=== PATIENT | male | born 1960 | race Caucasian/White ===

== ENCOUNTER 2021-03-11 01:04 | Inpatient (IN) | payer MEDICARE ==
[~2021-03-11] VITALS: Ht 177.8 cm; Wt 75.4 kg
[~2021-03-11 01:04] MED LIST: AUGMENTIN 875-1 EACH PO; BACTRIM DS TAB1 EACH PO; BENTYL10 MG PO; CELECOXIB400 MG PO; FLOMAX0.4 MG PO; HUMIRA PEN40 MG/0.8 IM; IBUPROFEN800 M1 PO; K-DUR20 MEQ PO; LISINOPRIL 20MG20 MG PO; MEDROL 4MG DOSEP4 MG PO; METHOTREXATE2.5 MG PO; MOBIC7.5 MG PO; MUCINEX 600MG600 MG PO; OMEPRAZOLE 20MG20 MG PO; ONDANSETRON HCL4 MG PO; ONDANSETRON ODT4 MG SL; OXY-IR 5MG5 MG PO; PREDNISONE 20MG20 MG PO; TESSALON PERLE100 MG PO; TRELEGY ELLIPT1 EACH INH; VENTOLIN HFA IN18 GM INH; ZPAK PO
[2021-03-11 02:09] LABS: BASOPHIL 0.3 % (0-2); EOSINOPHIL 0.3 % (0-5); HCT 41.4 % (42.0-52.0); HGB 13.8 g/dl (13.2-18.0); MCH 28.8 pg (25.0-31.0); MCHC 33.3 g/dL (32.0-36.0); MCV 86.4 fL (78.0-100.0); MONOCYTE 7.2 % (0-12); MPV 10.2 fL (6.0-9.5); NEUTROPHIL 82.7 % (41-80); NRBC 0; PLT 311 K/uL (150-400); RBC 4.79 M/uL (4.70-6.00); RDW 14.6 % (11.5-14.0); WBC 20.8 K/uL (4.0-10.5)
[2021-03-11 02:12] LABS: BILIRUBIN 1+ mg/dL (NEGATIVE); BLOOD 3+ Ery/uL (NEGATIVE); GLUCOSE (U) TRACE mg/dL (NORMAL); LEUKOCYTES 2+ Leu/uL (NEGATIVE); NITRITE POSITIVE (NEGATIVE); PROTEIN 3+ mg/dL (NEGATIVE); pH 5.5 (5.0-9.0)
[2021-03-11 02:19] LABS: CLARITY SLIGHTLY HAZY (CLEAR); COLOR ORANGE (YELLOW)
[2021-03-11 02:22] LABS: BACTERIA 1+; URINARY RBC 20-50
[2021-03-11 02:23] LABS: CALCIUM OXALATE CRYSTALS TRACE
[2021-03-11 02:25] LABS: ALBUMIN 2.6 g/dL (3.4-5.0); BILIRUBIN - TOTAL 0.3 mg/dL (0.2-1.0); BUN/CREAT RATIO (CALC) 9.6 RATIO; CREATININE 1.04 mg/dL (0.67-1.17); GLOBULIN (CALCULATION) 3.8 g/dL; POTASSIUM 2.9 mmol/L (3.5-5.1); TOTAL PROTEIN 6.4 g/dL (6.4-8.2)
[2021-03-11 02:29] LABS: LACTIC ACID 2.3 mmol/L (0.4-1.9)
[2021-03-11 02:44] LABS: CORONAVIRUS 2019 SARS-COV-2 NEGATIVE (NEGATIVE); INFLUENZA A NAA NEGATIVE (NEGATIVE)
[2021-03-11 22:36] LABS: HCT 37.5 % (42.0-52.0); HGB 12.3 g/dl (13.2-18.0); MCH 29.4 pg (25.0-31.0); MCHC 32.8 g/dL (32.0-36.0); MCV 89.5 fL (78.0-100.0); MPV 10.9 fL (6.0-9.5); RBC 4.19 M/uL (4.70-6.00); RDW 15.1 % (11.5-14.0)
[2021-03-11 22:38] LABS: WBC 31.4 K/uL (4.0-10.5)
[2021-03-11 22:51] LABS: ALBUMIN 2.3 g/dL (3.4-5.0); BILIRUBIN - TOTAL 0.3 mg/dL (0.2-1.0); BUN/CREAT RATIO (CALC) 8.7 RATIO; CREATININE 1.27 mg/dL (0.67-1.17); GLOBULIN (CALCULATION) 3.6 g/dL; PHOSPHORUS 2.2 mg/dL (2.6-4.7); POTASSIUM 3.8 mmol/L (3.5-5.1); TOTAL PROTEIN 5.9 g/dL (6.4-8.2)
--- NOTE | 2021-03-11 23:56 | NUR ---
UNABLE TO OBTAIN HISTORY FROM PATIENT. ATTEMPTED TO CALL FAMILY. WILL UPDATE WHEN PATIENT IS MORE COHERENT.
[2021-03-12 07:43] LABS: BUN/CREAT RATIO (CALC) 11.5 RATIO; CREATININE 1.13 mg/dL (0.67-1.17); POTASSIUM 4.8 mmol/L (3.5-5.1)
[2021-03-12 08:12] LABS: BASOPHIL 0.2 % (0-2); EOSINOPHIL 0 % (0-5); HCT 36.8 % (42.0-52.0); HGB 11.9 g/dl (13.2-18.0); LYMPHOCYTE 6.4 % (15-48); MCHC 32.3 g/dL (32.0-36.0); MCV 89.5 fL (78.0-100.0); MONOCYTE 5.6 % (0-12); MPV 10.3 fL (6.0-9.5); PLT 225 K/uL (150-400); RBC 4.11 M/uL (4.70-6.00); WBC 20.7 K/uL (4.0-10.5)
[2021-03-12 08:32] LABS: INR 1.48 (0.9-1.2); PROTHROMBIN TIME 17.2 SECONDS (11.8-13.4); PTT 38.9 SECONDS (24.4-34.7)
[2021-03-12 09:30] LABS: BAND 6 % (0-10); LYMPHOCYTE(M) 3 % (15-48); MONOCYTE(M) 7 % (0-12); NEUTROPHILS(M) 84 % (41-80); NRBC 0; TOTAL CELL COUNT 100
[2021-03-12 09:31] LABS: POIKILOCYTOSIS SLIGHT
[2021-03-12 09:32] LABS: PLATELET ESTIMATE NORMAL; PLATELET MORPHOLOGY NORMAL
[2021-03-13 06:28] LABS: BASOPHIL 0.4 % (0-2); EOSINOPHIL 0.8 % (0-5); HCT 35.2 % (42.0-52.0); HGB 11.4 g/dl (13.2-18.0); LYMPHOCYTE 13.2 % (15-48); MCH 28.9 pg (25.0-31.0); MCHC 32.4 g/dL (32.0-36.0); MCV 89.1 fL (78.0-100.0); MPV 11.3 fL (6.0-9.5); NEUTROPHIL 77.5 % (41-80); NRBC 0; PLT 223 K/uL (150-400); RBC 3.95 M/uL (4.70-6.00); RDW 14.9 % (11.5-14.0); WBC 14.2 K/uL (4.0-10.5)
[2021-03-13 06:49] LABS: BUN/CREAT RATIO (CALC) 15.4 RATIO; CREATININE 1.04 mg/dL (0.67-1.17); POTASSIUM 3.7 mmol/L (3.5-5.1)
[2021-03-14 06:30] LABS: BASOPHIL 0.4 % (0-2); EOSINOPHIL 0.8 % (0-5); HCT 35.6 % (42.0-52.0); HGB 11.7 g/dl (13.2-18.0); LYMPHOCYTE 22.9 % (15-48); MCH 28.8 pg (25.0-31.0); MCHC 32.9 g/dL (32.0-36.0); MCV 87.7 fL (78.0-100.0); MONOCYTE 9.6 % (0-12); MPV 11.1 fL (6.0-9.5); NRBC 0; PLT 251 K/uL (150-400); RBC 4.06 M/uL (4.70-6.00); RDW 14.8 % (11.5-14.0); WBC 11.9 K/uL (4.0-10.5)
[2021-03-14 08:52] LABS: CREATININE 1.06 mg/dL (0.67-1.17); POTASSIUM 3.1 mmol/L (3.5-5.1)
[2021-03-14] MEDS ORDERED: ZYVOX600 MG PO (09:36)
== END 2021-03-14 16:20 | disposition home or self-care (01) | DRG 698 ==
LOC: FER 01:04 → FMS 22:13
PROVIDERS: Allergy & Immunology Allergy; Emergency Medicine; Nurse Practitioner; ADMIT Internal Medicine
DX: T83.592A Infection and inflammatory reaction due to indwelling ureteral stent, initial encounter (principal); A41.81 Sepsis due to Enterococcus; G93.41 Metabolic encephalopathy; R65.20 Severe sepsis without septic shock; N30.01 Acute cystitis with hematuria; C79.31 Secondary malignant neoplasm of brain; C34.90 Malignant neoplasm of unspecified part of unspecified bronchus or lung; N12 Tubulo-interstitial nephritis, not specified as acute or chronic; Z20.822 Contact with and (suspected) exposure to COVID-19; M06.9 Rheumatoid arthritis, unspecified; I10 Essential (primary) hypertension; F17.200 Nicotine dependence, unspecified, uncomplicated; F10.10 Alcohol abuse, uncomplicated; Z79.899 Other long term (current) drug therapy
CPT/HCPCS: 36415; 70450; 70553; 71045; 71250; 80048; 80053; 80202; 81001; 83605; 83690; 83735; 84100; 84145; 85025; 85610; 85730; 87040; 87076; 87088; 87186; 93005; 94010; 94640; 94760; 94762; A9579; C9113; J1170; J1630; J1650; J1885; J2020; J2060; J2185; J2405; J3370; J3411; J3475; J3480; J3486; J7030; J7050; U0002

== ENCOUNTER 2021-03-24 19:53 | Emergency (ER) | payer MEDICARE ==
[~2021-03-24 19:53] MED LIST changes: +ZYVOX600 MG PO
[2021-03-24 21:40] LABS: BASOPHIL 0.6 % (0-2); EOSINOPHIL 2.3 % (0-5); HCT 41.2 % (42.0-52.0); HGB 13.4 g/dl (13.2-18.0); LYMPHOCYTE 31.5 % (15-48); MCH 28.2 pg (25.0-31.0); MCHC 32.5 g/dL (32.0-36.0); MCV 86.7 fL (78.0-100.0); MONOCYTE 5.6 % (0-12); MPV 10.1 fL (6.0-9.5); NEUTROPHIL 59.3 % (41-80); NRBC 0; PLT 234 K/uL (150-400); RBC 4.75 M/uL (4.70-6.00); WBC 11.1 K/uL (4.0-10.5)
[2021-03-24 21:53] LABS: ALBUMIN 3.1 g/dL (3.4-5.0); BILIRUBIN - TOTAL 0.3 mg/dL (0.2-1.0); BUN/CREAT RATIO (CALC) 12.7 RATIO; CREATININE 1.02 mg/dL (0.67-1.17); POTASSIUM 3.2 mmol/L (3.5-5.1); TOTAL PROTEIN 7.1 g/dL (6.4-8.2)
[2021-03-24 22:06] LABS: LACTIC ACID 2.3 mmol/L (0.4-1.9)
[2021-03-24 22:31] LABS: CORONAVIRUS 2019 SARS-COV-2 NEGATIVE (NEGATIVE); INFLUENZA A NAA NEGATIVE (NEGATIVE)
[2021-03-24] MEDS ORDERED: MUCINEX 600MG600 MG PO (23:52)
[2021-03-24] MEDS ORDERED: ATIVAN0.5 MG PO (23:52)
== END 2021-03-25 00:04 | disposition home or self-care (01) ==
LOC: FER 19:53
PROVIDERS: Emergency Medicine Emergency Medical Services; Physician Assistant
DX: J44.9 Chronic obstructive pulmonary disease, unspecified (principal); F41.9 Anxiety disorder, unspecified; R91.1 Solitary pulmonary nodule; I10 Essential (primary) hypertension; F17.200 Nicotine dependence, unspecified, uncomplicated; Z20.822 Contact with and (suspected) exposure to COVID-19; Z88.8 Allergy status to other drugs, medicaments and biological substances
CPT/HCPCS: 36415; 71275; 80053; 83605; 83880; 84145; 84484; 85025; 87040; 93005; J1100; Q9967; U0002

== ENCOUNTER 2021-04-18 16:43 | Emergency (ER) | payer MEDICARE ==
[~2021-04-18 16:43] MED LIST changes: +ATIVAN0.5 MG PO
[2021-04-18 17:49] LABS: BASOPHIL 0.6 % (0-2); EOSINOPHIL 1.8 % (0-5); HCT 44.6 % (42.0-52.0); HGB 14.4 g/dl (13.2-18.0); LYMPHOCYTE 7.8 % (15-48); MCH 28.5 pg (25.0-31.0); MCHC 32.3 g/dL (32.0-36.0); MCV 88.1 fL (78.0-100.0); MONOCYTE 27.5 % (0-12); MPV 10.9 fL (6.0-9.5); NRBC 0; PLT 298 K/uL (150-400); RBC 5.06 M/uL (4.70-6.00); RDW 17.8 % (11.5-14.0); WBC 10.8 K/uL (4.0-10.5)
[2021-04-18 17:51] LABS: BILIRUBIN NEGATIVE (NEGATIVE); BLOOD NEGATIVE Ery/uL (NEGATIVE); CLARITY CLEAR (CLEAR); COLOR YELLOW (YELLOW); GLUCOSE (U) NORMAL (NORMAL); LEUKOCYTES NEGATIVE Leu/uL (NEGATIVE); NITRITE NEGATIVE (NEGATIVE); PROTEIN NEGATIVE (NEGATIVE); SPECIFIC GRAVITY 1.015 (1.001-1.030); UROBILINOGEN 0.2 mg/dL (0.2-1.0); pH 6.5 (5.0-9.0)
[2021-04-18 17:53] LABS: INR 1.11 (0.9-1.2); PROTHROMBIN TIME 13.7 SECONDS (11.8-13.4); PTT 29.3 SECONDS (24.4-34.7)
[2021-04-18 17:55] LABS: NEUTROPHIL 60.8 % (41-80)
[2021-04-18 18:08] LABS: ALBUMIN 3.5 g/dL (3.4-5.0); BILIRUBIN - TOTAL 0.2 mg/dL (0.2-1.0); BUN/CREAT RATIO (CALC) 7.5 RATIO; CREATININE 1.06 mg/dL (0.67-1.17); GLOBULIN (CALCULATION) 3.9 g/dL; POTASSIUM 3.8 mmol/L (3.5-5.1); TOTAL PROTEIN 7.4 g/dL (6.4-8.2)
[2021-04-18 18:10] LABS: LACTIC ACID 1.6 mmol/L (0.4-1.9)
[2021-04-18 18:26] LABS: INFLUENZA A NAA NEGATIVE (NEGATIVE)
[2021-04-18 18:38] LABS: BAND 12 % (0-10); BASOPHIL(M) 0 % (0-2); EOSINOPHIL(M) 4 % (0-5); LYMPHOCYTE(M) 9 % (15-48); MONOCYTE(M) 18 % (0-12); NEUTROPHILS(M) 57 % (41-80)
[2021-04-18 18:39] LABS: PLATELETS ON SMEAR ADEQUATE
[2021-04-18 18:43] LABS: CORONAVIRUS 2019 SARS-COV-2 POSITIVE (NEGATIVE)
== END 2021-04-18 19:18 | disposition home or self-care (01) ==
LOC: FER 16:43
PROVIDERS: Emergency Medicine
DX: U07.1 COVID-19 (principal); J44.9 Chronic obstructive pulmonary disease, unspecified; I10 Essential (primary) hypertension; Z88.8 Allergy status to other drugs, medicaments and biological substances
CPT/HCPCS: 36415; 71045; 80053; 81003; 83605; 84145; 85025; 85610; 85730; 87040; 87088; 93005; J2405; J2543; J7030; U0002

== ENCOUNTER 2021-05-10 22:54 | Emergency (ER) | payer MEDICARE ==
[2021-05-11 00:30] LABS: BASOPHIL 0.6 % (0-2); EOSINOPHIL 3.3 % (0-5); HCT 41.4 % (42.0-52.0); HGB 13.5 g/dl (13.2-18.0); LYMPHOCYTE 41.4 % (15-48); MCHC 32.6 g/dL (32.0-36.0); MPV 10.7 fL (6.0-9.5); NRBC 0; PLT 247 K/uL (150-400); RBC 4.65 M/uL (4.70-6.00); RDW 16.6 % (11.5-14.0); WBC 10.6 K/uL (4.0-10.5)
[2021-05-11 00:31] LABS: NEUTROPHIL 45.5 % (41-80)
[2021-05-11 00:41] LABS: BILIRUBIN NEGATIVE (NEGATIVE); BLOOD NEGATIVE Ery/uL (NEGATIVE); CLARITY CLEAR (CLEAR); COLOR YELLOW (YELLOW); GLUCOSE (U) NORMAL (NORMAL); LEUKOCYTES NEGATIVE Leu/uL (NEGATIVE); NITRITE NEGATIVE (NEGATIVE); PROTEIN NEGATIVE (NEGATIVE); SPECIFIC GRAVITY 1.025 (1.001-1.030); UROBILINOGEN 0.2 mg/dL (0.2-1.0); pH 6.5 (5.0-9.0)
[2021-05-11 00:51] LABS: ALBUMIN 3.2 g/dL (3.4-5.0); BILIRUBIN - TOTAL 0.3 mg/dL (0.2-1.0); BUN/CREAT RATIO (CALC) 11.9 RATIO; CREATININE 1.01 mg/dL (0.67-1.17); GLOBULIN (CALCULATION) 3.7 g/dL; TOTAL PROTEIN 6.9 g/dL (6.4-8.2)
[2021-05-11 01:05] LABS: INFLUENZA A NAA NEGATIVE (NEGATIVE)
[2021-05-11 01:07] LABS: CORONAVIRUS 2019 SARS-COV-2 POSITIVE (NEGATIVE)
[2021-05-11] MEDS ORDERED: VENTOLIN HFA IN18 GM INH (01:52)
[2021-05-11] MEDS ORDERED: AZITHROMYCIN250 MG PO (01:52)
[2021-05-11] MEDS ORDERED: PREDNISONE 20MG20 MG PO (01:52)
[2021-05-11 02:32] LABS: BUN/CREAT RATIO (CALC) 12.5 RATIO; CREATININE 0.96 mg/dL (0.67-1.17); POTASSIUM 2.9 mmol/L (3.5-5.1)
[2021-05-11] MEDS ORDERED: K-TAB ER20 MEQ PO (03:28)
== END 2021-05-11 02:30 | disposition home or self-care (01) ==
LOC: FER 22:54
PROVIDERS: Internal Medicine
DX: U07.1 COVID-19 (principal); J44.1 Chronic obstructive pulmonary disease with (acute) exacerbation; E87.6 Hypokalemia; I10 Essential (primary) hypertension; F17.210 Nicotine dependence, cigarettes, uncomplicated
CPT/HCPCS: 36415; 71250; 80048; 80053; 81003; 83690; 83735; 83880; 84145; 84484; 85025; 93005; 94640; J1100; J2405; J3475; J3480; U0002

== ENCOUNTER → 2021-06-23 | Day surgery (SDC) | payer MEDICARE ==
[~2021-06-23] VITALS: Ht 170.2 cm; Wt 69.8 kg
[~2021-06-23] MED LIST changes: +AZITHROMYCIN250 MG PO; +K-TAB ER20 MEQ PO; +ULTRAM50 MG PO
== END | disposition home or self-care (01) ==
LOC: FAS 10:54
DX: C34.92 Malignant neoplasm of unspecified part of left bronchus or lung (principal); M19.90 Unspecified osteoarthritis, unspecified site; I10 Essential (primary) hypertension; J44.9 Chronic obstructive pulmonary disease, unspecified; F17.200 Nicotine dependence, unspecified, uncomplicated; Z88.8 Allergy status to other drugs, medicaments and biological substances
CPT/HCPCS: 71045; 76000; C1788; J0690; J1644; J2001; J2250; J3010; J7120

== ENCOUNTER 2021-08-13 22:36 | Emergency (ER) | payer MEDICARE ==
[2021-08-14 00:47] LABS: BASOPHIL 0.2 % (0-2); EOSINOPHIL 0.4 % (0-5); HCT 39.4 % (42.0-52.0); HGB 13.1 g/dl (13.2-18.0); LYMPHOCYTE 47.8 % (15-48); MCH 28.2 pg (25.0-31.0); MCHC 33.2 g/dL (32.0-36.0); MCV 84.9 fL (78.0-100.0); MONOCYTE 9.5 % (0-12); NEUTROPHIL 41.1 % (41-80); NRBC 0; PLT 155 K/uL (150-400); RBC 4.64 M/uL (4.70-6.00); RDW 14.2 % (11.5-14.0); WBC 8.3 K/uL (4.0-10.5)
[2021-08-14 01:07] LABS: ALBUMIN 3.4 g/dL (3.4-5.0); BILIRUBIN - TOTAL 0.5 mg/dL (0.2-1.0); BUN/CREAT RATIO (CALC) 15.2 RATIO; CREATININE 1.25 mg/dL (0.67-1.17); GLOBULIN (CALCULATION) 3.6 g/dL; POTASSIUM 3.9 mmol/L (3.5-5.1)
[2021-08-14 02:14] LABS: BILIRUBIN NEGATIVE (NEGATIVE); BLOOD NEGATIVE Ery/uL (NEGATIVE); CLARITY CLEAR (CLEAR); COLOR YELLOW (YELLOW); GLUCOSE (U) NORMAL (NORMAL); LEUKOCYTES 1+ Leu/uL (NEGATIVE); NITRITE NEGATIVE (NEGATIVE); PROTEIN NEGATIVE (NEGATIVE); SPECIFIC GRAVITY <=1.005 (1.001-1.030); UROBILINOGEN 0.2 mg/dL (0.2-1.0)
[2021-08-14 02:29] LABS: BACTERIA TRACE; GRANULAR CASTS TRACE; SQUAMOUS EPITHELIAL CELLS RARE
== END 2021-08-14 02:50 | disposition home or self-care (01) ==
LOC: FER 22:36
PROVIDERS: Internal Medicine
DX: E86.0 Dehydration (principal); N17.9 Acute kidney failure, unspecified; J44.9 Chronic obstructive pulmonary disease, unspecified; F17.210 Nicotine dependence, cigarettes, uncomplicated
CPT/HCPCS: 36415; 80053; 81001; 82550; 85025; J1642; J2405; J7030

== ENCOUNTER 2021-09-05 20:24 | Emergency (ER) | payer MEDICARE ==
[2021-09-05 21:46] LABS: BASOPHIL 0.2 % (0-2); EOSINOPHIL 0.2 % (0-5); HCT 31.4 % (42.0-52.0); HGB 10.6 g/dl (13.2-18.0); MCH 28.8 pg (25.0-31.0); MCHC 33.8 g/dL (32.0-36.0); MCV 85.3 fL (78.0-100.0); MONOCYTE 15.6 % (0-12); MPV 10.2 fL (6.0-9.5); NRBC 0; RBC 3.68 M/uL (4.70-6.00); RDW 15.4 % (11.5-14.0); WBC 4.6 K/uL (4.0-10.5)
[2021-09-05 21:50] LABS: NEUTROPHIL 20.8 % (41-80)
[2021-09-05 22:02] LABS: ALBUMIN 3.2 g/dL (3.4-5.0); BILIRUBIN - TOTAL 0.3 mg/dL (0.2-1.0); BUN/CREAT RATIO (CALC) 19.1 RATIO; CREATININE 1.15 mg/dL (0.67-1.17); GLOBULIN (CALCULATION) 3.4 g/dL; POTASSIUM 3.9 mmol/L (3.5-5.1); TOTAL PROTEIN 6.6 g/dL (6.4-8.2)
[2021-09-05 22:07] LABS: PLT 96 K/uL (150-400)
[2021-09-05 23:37] LABS: CORONAVIRUS 2019 SARS-COV-2 NEGATIVE (NEGATIVE); INFLUENZA A NAA NEGATIVE (NEGATIVE)
[2021-09-06 00:10] LABS: BILIRUBIN NEGATIVE (NEGATIVE); BLOOD NEGATIVE Ery/uL (NEGATIVE); CLARITY CLEAR (CLEAR); COLOR YELLOW (YELLOW); GLUCOSE (U) NORMAL (NORMAL); LEUKOCYTES NEGATIVE Leu/uL (NEGATIVE); NITRITE NEGATIVE (NEGATIVE); PROTEIN NEGATIVE (NEGATIVE); SPECIFIC GRAVITY <=1.005 (1.001-1.030); UROBILINOGEN 0.2 mg/dL (0.2-1.0)
[2021-09-06 00:14] LABS: SQUAMOUS EPITHELIAL CELLS RARE
== END 2021-09-06 00:38 | disposition home or self-care (01) ==
LOC: FER 20:24
PROVIDERS: Emergency Medicine
DX: R53.83 Other fatigue (principal); R42 Dizziness and giddiness; R11.0 Nausea; I10 Essential (primary) hypertension; F17.200 Nicotine dependence, unspecified, uncomplicated; Z88.8 Allergy status to other drugs, medicaments and biological substances; Z79.899 Other long term (current) drug therapy; Z20.822 Contact with and (suspected) exposure to COVID-19
CPT/HCPCS: 36415; 70450; 71045; 80053; 81001; 85025; 93005; J2405; J7030; U0002

== ENCOUNTER 2021-11-07 20:19 | Emergency (ER) | payer MEDICARE ==
[2021-11-07 21:23] LABS: BILIRUBIN NEGATIVE (NEGATIVE); BLOOD NEGATIVE Ery/uL (NEGATIVE); CLARITY CLEAR (CLEAR); COLOR YELLOW (YELLOW); GLUCOSE (U) NORMAL (NORMAL); LEUKOCYTES TRACE Leu/uL (NEGATIVE); NITRITE NEGATIVE (NEGATIVE); PROTEIN NEGATIVE (NEGATIVE); SPECIFIC GRAVITY <=1.005 (1.001-1.030); UROBILINOGEN 0.2 mg/dL (0.2-1.0); pH 6.5 (5.0-9.0)
[2021-11-07 21:24] LABS: BASOPHIL 0.3 % (0-2); CREATININE 1.2 mg/dL (0.67-1.17); EOSINOPHIL 2.2 % (0-5); HCT 30.9 % (42.0-52.0); HGB 10.2 g/dl (13.2-18.0); LYMPHOCYTE 19.4 % (15-48); MCH 31.6 pg (25.0-31.0); MCV 95.7 fL (78.0-100.0); MONOCYTE 13.2 % (0-12); MPV 11.2 fL (6.0-9.5); NEUTROPHIL 64.3 % (41-80); NRBC 0; PLT 201 K/uL (150-400); RBC 3.23 M/uL (4.70-6.00); RDW 15.9 % (11.5-14.0); WBC 10.8 K/uL (4.0-10.5)
[2021-11-07 21:25] LABS: BILIRUBIN - TOTAL 0.3 mg/dL (0.2-1.0); GLOBULIN (CALCULATION) 3.9 g/dL; POTASSIUM 2.5 mmol/L (3.5-5.1); TOTAL PROTEIN 6.9 g/dL (6.4-8.2)
[2021-11-07 21:36] LABS: BACTERIA TRACE
[2021-11-07 21:51] LABS: CORONAVIRUS 2019 SARS-COV-2 NEGATIVE (NEGATIVE); INFLUENZA A NAA NEGATIVE (NEGATIVE)
[2021-11-07 23:24] LABS: LACTIC ACID 2.1 mmol/L (0.4-1.9)
== END 2021-11-08 02:52 | disposition home or self-care (01) ==
LOC: FER 20:19
PROVIDERS: Emergency Medicine
DX: C34.90 Malignant neoplasm of unspecified part of unspecified bronchus or lung (principal); C79.31 Secondary malignant neoplasm of brain; R53.1 Weakness; J44.9 Chronic obstructive pulmonary disease, unspecified; I10 Essential (primary) hypertension; Z20.822 Contact with and (suspected) exposure to COVID-19; Z88.8 Allergy status to other drugs, medicaments and biological substances; Z87.891 Personal history of nicotine dependence; Z79.899 Other long term (current) drug therapy
CPT/HCPCS: 36415; 71046; 80053; 81001; 82150; 83605; 83690; 85025; 87040; J1642; J7030; U0002